=== PATIENT | female | born 1960 | race Caucasian/White ===

== ENCOUNTER 2017-11-21 12:27 | Emergency (ER) | payer BC ==
[~2017-11-21] VITALS: Ht 167.6 cm; Wt 90.9 kg
[2017-11-21 12:55] VITALS: Ht 167.6 cm; Wt 90.9 kg
[2017-11-21 14:59] VITALS: BP 129/78
== END 2017-11-21 15:01 | disposition left against medical advice (07) ==
LOC: D.ER 12:27
DX: R11.2 Nausea with vomiting, unspecified (principal)